=== PATIENT | female | born 1960 | race Caucasian/White ===

== ENCOUNTER 2021-05-08 09:33 | Emergency (ER) | payer OTHER ==
[~2021-05-08] VITALS: Ht 165.1 cm; Wt 71.7 kg
[2021-05-08] MEDS ORDERED: ACETAMINOPHEN 325 MG TAB PO ONE (10:45)
[2021-05-08] MEDS ORDERED: ONDANSETRON ODT4 MG PO (11:36)
== END 2021-05-08 11:40 | disposition home or self-care (01) ==
LOC: ER 10:12
DX: S06.0X0D Concussion without loss of consciousness, subsequent encounter (principal); W20.8XXD Other cause of strike by thrown, projected or falling object, subsequent encounter; N18.2 Chronic kidney disease, stage 2 (mild); R25.1 Tremor, unspecified; G47.30 Sleep apnea, unspecified; F42.9 Obsessive-compulsive disorder, unspecified
CPT/HCPCS: 70450; 99283